=== PATIENT | female | born 1940 ===

== ENCOUNTER 2020-12-26 07:00 | Outpatient (RCR) | payer MEDICARE, SELFPAY | END 2021-02-10 14:49 | disposition home or self-care (01) | LOC: HO.PTWFD 07:00 | PROVIDERS: Visit Provider Internal Medicine | DX: M54.2 Cervicalgia (principal) | CPT/HCPCS: 97110; 97162; 97530; 97535 ==

== ENCOUNTER 2023-08-15 07:00 | Outpatient (RCR) | payer MEDICARE, SELFPAY | END 2024-05-04 07:28 | disposition home or self-care (01) | LOC: HO.PTWFD 07:00 | PROVIDERS: Absent Provider Internal Medicine; PCP Internal Medicine; Visit Provider Orthopaedic Surgery | DX: S42.201D Unspecified fracture of upper end of right humerus, subsequent encounter for fracture with routine healing (principal) | CPT/HCPCS: 97110; 97140; 97150; 97162; 97535 ==

== ENCOUNTER 2024-03-09 07:00 | Outpatient (RCR) | payer MEDICARE, SELFPAY | END 2024-04-22 11:34 | disposition home or self-care (01) | LOC: HO.PTWFD 07:00 | PROVIDERS: PCP Internal Medicine; Visit Provider Internal Medicine | DX: M25.561 Pain in right knee (principal) | CPT/HCPCS: 97110; 97140; 97161; 97530; 97535 ==

== ENCOUNTER 2024-04-24 07:43 | Outpatient (REF) | payer MEDICARE, SELFPAY ==
[2024-04-24 12:04] LABS: Hematocrit 43.7 % (37.0-47.0); Hemoglobin 14.2 g/dl (12.0-16.0); Mean Corpuscular HGB Conc 32.5 g/dl (31.0-35.0); Mean Corpuscular Hemoglobin 29.5 pg (27.0-33.0); Mean Corpuscular Volume 90.9 fL (80.0-98.0); Mean Platelet Volume 11.8 fL (9.4-12.3); Platelet Count 291 X10*3/uL (160-400); Red Blood Count 4.81 X10*6/uL (4.20-5.50); Red Cell Distribution Width 13.2 % (11.0-16.0); White Blood Count 6.6 X10*3/uL (4.8-10.8)
[2024-04-24 15:07] LABS: Alanine Aminotransferase 17 U/L (0-31); Albumin Level 4.1 g/dL (3.5-5.0); Alkaline Phosphatase 73 U/L (39-117); Anion Gap 13 (12-20); Aspartate Amino Transferase 25 U/L (5-31); Bilirubin Total 0.4 mg/dL (0.0-1.0); Blood Urea Nitrogen 16 mg/dL (9-16); Calcium 9.3 mg/dL (8.4-10.2); Carbon Dioxide 30 mmol/L (22-29); Chloride 104 mmol/L (96-108); Cholesterol 164 mg/dL (<200); Estimated Glomerular Filt Rate > 60; Glucose Fasting 80 mg/dL (60-99); HDL Cholesterol 71 mg/dL (>40); LDL Cholesterol Calculated 78 mg/dL (<100); Potassium 3.7 mmol/L (3.3-5.1); Sodium 143 mmol/L (135-145); Total Protein 7.8 g/dL (6.5-8.0); Triglycerides 75 mg/dL (<150); Vitamin D 25-OH Total 38.7 ng/mL (>30)
== END 2024-04-24 07:44 | disposition home or self-care (01) ==
LOC: HO.WFDLDS 07:43
PROVIDERS: Visit Provider Internal Medicine
DX: I48.91 Unspecified atrial fibrillation (principal); M25.569 Pain in unspecified knee
CPT/HCPCS: 36415; 80053; 80061; 82306; 85027